=== PATIENT | male | born 1945 | race Caucasian/White ===

== ENCOUNTER 2017-10-09 12:54 | Day surgery (SDC) | payer BC ==
[2017-10-09] MEDS ORDERED: LIDOCAINE 1% 300 MG/30 ML SDV ONE (15:04)
[2017-10-09] MEDS ORDERED: TRIAMCINOLONE ACETONIDE 200 MG/5 ML MDV IM ONE (15:04)
== END 2017-10-09 14:45 | disposition home or self-care (01) ==
LOC: FIMAGING 12:54
PROVIDERS: ATTEND Physical Medicine & Rehabilitation
PROC: 3E0R3BZ Introduction of Anesthetic Agent into Spinal Canal, Percutaneous Approach (ICD-10-PCS; principal; 2017-10-09)
PROC: 3E0R33Z Introduction of Anti-inflammatory into Spinal Canal, Percutaneous Approach (ICD-10-PCS; principal; 2017-10-09)
DX: M51.16 Intervertebral disc disorders with radiculopathy, lumbar region (principal); M54.5 Low back pain
CPT/HCPCS: J3301

== ENCOUNTER 2018-06-07 05:47 | Day surgery (SDC) | payer BC ==
[2018-06-07] MEDS ORDERED: ceFAZolin 2 GM/DEXTROSE 100 ML IV ONE (06:06)
[2018-06-07] MEDS ORDERED: LIDOCAINE 1% 2 ML INJ ID PRN (06:06)
[2018-06-07] MEDS ORDERED: LR 1,000 ML IV ONE (06:06)
--- NOTE | 2018-06-07 06:20 | PDHPUP ---
History & Physical Update H&P update statement: This history and physical update is based on an assessment of the patient which was completed after admission or registration (within 24 hours), but prior to the surgery/procedure. H&P update: H&P reviewed & patient examined, no change in patient's condition since H&P completed
--- NOTE | 2018-06-07 07:01 | PDANEPAE ---
ANE History of Present Illness left inguinal hernia for laparoscopic hernia repair ANE Past Medical History - Cardiovascular History Hx Hypertension: No Hx Arrhythmias: No Hx Chest Pain: No Hx Coronary Artery / Peripheral Vascular Disease: Yes Hx CHF / Valvular Disease: No Hx Palpitations: No Cardiovascular History Comment: no chest pain since stents were placed - Pulmonary History Hx COPD: No Hx Asthma/Reactive Airway Disease: No Hx Recent Upper Respiratory Infection: No Hx Oxygen in Use at Home: No Hx Sleep Apnea: No Sleep Apnea Screening Result - Last Documented: Negative Pulmonary History Comment: Hayfever - Neurologic History Hx Cerebrovascular Accident: No Hx Seizures: No Hx Dementia: No - Endocrine History Hx Diabetes: No Hypothyroid: No Hyperthyroid: No Obesity: no - Renal History Hx Renal Disorders: Yes Renal History Comment: BPH - Liver History Hx Hepatic Disorders: No - Neurological & Psychiatric Hx Hx Neurological and Psychiatric Disorders: No - Cancer History Hx Cancer: No - Congenital Disorder History Hx Congenital Disorders: No - GI History GERD: no Hx Gastrointestinal Disorders: No - Other Health History Other Health History: 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 MACULAR DEGENERATION - Chronic Pain History Chronic Pain: No - Surgical History Prior Surgeries: HEART STENT 2014 & 2016. RT ING HERNIA. vasecetomy. TONSILLECTOMY ANE Review of Systems Review of systems is: negative Review of Systems: - Exercise capacity METS (RN): 4 METS ANE Patient History - Allergies Allergies/Adverse Reactions: STERI STRIPS Allergy (Uncoded 06/06/18 14:29) SKIN REACTION - Home Medications Home medications: home medication list seen and reviewed Home Medications: Aspirin 81mg (*) 81 mg PO DAILY 10/03/17 [Last Taken 06/01/18] Crestor 40mg (*) 40 mg PO HS 10/03/17 [Last Taken 06/06/18] Flomax 0.4 mg PO HS 10/03/17 [Last Taken 06/06/18] Plavix 75 mg PO HS 10/03/17 [Last Taken 06/01/18] Levitra PRN 06/06/18 [Last Taken 06/06/18] Multivitamin (*) DAILY 06/06/18 [Last Taken 06/06/18] - NPO status NPO Since - Liquids (Date): 06/06/18 NPO Since - Liquids (Time): 19:00 NPO Since - Solids (Date): 06/06/18 NPO Since - Solids (Time): 19:00 - Anes Hx Anes Hx: no prior problems - Smoking Hx Smoking Status: Never smoked - Family Anes Hx Family Anes Hx: none Family Hx Anesthesia Complications: denies ANE Labs/Vital Signs - Vital Signs Blood Pressure: 142/88 Heart Rate: 59 Respiratory Rate: 18 O2 Sat (%): 96 Height: 172.72 cm Weight: 59.874 kg ANE Physical Exam - Airway Neck exam: FROM Mallampati Score: Class 1 Mouth exam: normal dental/mouth exam - Pulmonary Pulmonary: no respiratory distress - Cardiovascular Cardiovascular: regular rate and rhythym - ASA Status ASA Status: III ANE Anesthesia Plan Anesthesia Plan: general endotracheal anesthesia
[2018-06-07] MEDS ORDERED: BUPIVACAINE 0.5% 30 ML SDV ONE (07:03)
[2018-06-07] MEDS ORDERED: fentaNYL 100 MCG/2 ML INJ ONE (07:07)
[2018-06-07] MEDS ORDERED: ROCURONIUM 50 MG/5 ML VIAL ONE (07:07)
[2018-06-07] MEDS ORDERED: ONDANSETRON 4 MG/2 ML VIAL ONE (07:07)
[2018-06-07] MEDS ORDERED: SUGAMMADEX SODIUM 200 MG/2 ML VIAL IVP ONE (07:07)
[2018-06-07] MEDS ORDERED: DEXAMETHASONE 4 MG/ML VIAL ONE (07:07)
[2018-06-07] MEDS ORDERED: PROPOFOL 200 MG/20 ML VIAL ONE (07:07)
[2018-06-07] MEDS ORDERED: LIDOCAINE 2% 2 ML INJ ONE (07:09)
[2018-06-07] MEDS ORDERED: ePHEDrine SULFATE 25 MG/5 ML SYR ONE (07:42)
[2018-06-07] MEDS ORDERED: PHENYLEPHRINE HCL 100 MCG/ML SYR ONE (07:42)
[2018-06-07] MEDS ORDERED: HYDROmorphONE/DILAUDID 2 MG/ML INJ IVP PRN (07:46)
[2018-06-07] MEDS ORDERED: LR 500 ML IV PRN (07:46)
[2018-06-07] MEDS ORDERED: ALBUTEROL 3 ML DEYVIAL IH PRN (07:46)
[2018-06-07] MEDS ORDERED: NALOXONE HCL 0.4 MG/ML INJ IVP PRN (07:46)
[2018-06-07] MEDS ORDERED: ACETAMINOPHEN 500 MG TAB PO PRN (07:46)
[2018-06-07] MEDS ORDERED: fentaNYL 100 MCG/2 ML INJ IVP PRN (07:46)
[2018-06-07] MEDS ORDERED: ONDANSETRON 4 MG/2 ML VIAL IVP PRN (07:46)
[2018-06-07] MEDS ORDERED: oxyCODONE IR 5 MG TAB PO PRN (07:46)
[2018-06-07] MEDS ORDERED: PROMETHAZINE HCL 25 MG/ML INJ IVP PRN (07:46)
[2018-06-07] MEDS ORDERED: LABETALOL HCL 5 MG/ML 20 ML MDV IVP PRN (07:46)
[2018-06-07] MEDS ORDERED: HYDROCODONE/APAP 5/325 TAB PO PRN (07:46)
--- NOTE | 2018-06-07 07:46 | POSTANESTH ---
Post Anesthetic Evaluation Cardiovascular Status: Normal, Stable Respiratory Status: Normal, Stable Level of Consciousness/Mental Status: Can Participate in Eval, Mildly Sleepy, Arousable Pain Control: Adequate, Prn Tx Ordered Nausea/Vomiting Control: Adequate, Prn Tx Ordered Complications Possibly Related to Anesthesia: None Noted
[2018-06-07] MEDS ORDERED: KETOROLAC 30 MG/1 ML SDV ONE (07:52)
--- NOTE | 2018-06-07 08:40 | POSTOPPROG ---
Post Op Note Date of Operation: 06/07/18 Surgeon: Madeline Rosario Marble Polisher: ambar Anesthesiologist: russell Anesthesia: GET(General Endotracheal) Pre-op Diagnosis: LIH Post-op Diagnosis: BIH and R femoral Indication: 72 yo with RIH Procedure: Lap BIH Findings: B indirect and R femoral Inf/Abcess present in the surg proc area at time of surgery?: No EBL: Minimal Specimen(s): none
--- NOTE | 2018-06-07 09:17 | GOP ---
DATE OF OPERATION: 06/07/2018 SURGEON: Madeline Rosario MD PERCUSSION WELDING MACHINE OPERATOR: Verna Power P.A.-C. ANESTHESIA: General. ANESTHESIOLOGIST: Kapil Jason MD. PREOPERATIVE DIAGNOSIS: Left inguinal hernia. POSTOPERATIVE DIAGNOSIS: Left initial indirect inguinal hernia, right indirect inguinal hernia and r ight femoral hernia. PROCEDURE PERFORMED: Laparoscopic bilateral inguinal hernia repair with mesh. FINDINGS: Left and right indirect inguinal hernias and a right femoral hernia. SPECIMENS: None. ESTIMATED BLOOD LOSS: 5 cc. INDICATIONS: The patient is a 72-year-old who presented with a left inguinal hernia. DESCRIPTION OF PROCEDURE: Patient was brought into the operating room, placed supine on the table, a nd general anesthesia was administered. His abdomen was prepped and draped in the usual sterile fash ion. I infiltrated all sites with 0.5% Marcaine prior to making incisions. I made an incision in hi s umbilicus. I dissected down through the subcutaneous space and encountered the anterior rectus she ath. I divided this. I also divided the posterior rectus sheath. I then created a plane between th e anterior and posterior rectus sheath and directed the balloon tip trocar directed towards the pubis . I performed hand insufflation with the camera in place. He was placed in the Trendelenburg positi on. I exchanged the dissecting balloon for the working balloon insufflation at 15 mmHg. I placed a 5 mm suprapubic trocar and a 5 mm trocar between the 1st and 2nd trocars. I started on the left side . I cleared the pubis and created a space laterally. The inferior epigastric vessels were kept ante rior to the plane. I freed the peritoneum from the cord and cord structures. I then placed a piece of laparoscopic self-fixating ProGrip mesh to cover the direct, indirect, and femoral spaces. It was tacked to the pubic tubercle and anteriorly. Next, I explored the right side. On the right side he had an indirect inguinal hernia. The peritoneum was very thin and I made a small breach in the cindy toneum which was clipped. He also had a small femoral hernia. The fat was reduced by the femoral ve in. Once both hernias were reduced, I placed a piece of laparoscopic self-fixating ProGrip mesh to c over the direct, indirect, and femoral spaces. It was also tacked to the pubic tubercle and anterior . The preperitoneal space was allowed to desufflate, same with the air in the peritoneum. Fascia cl osed with 0 Vicryl, skin closed with 4-0 Monocryl, Dermabond applied. He was awakened in the operati ng room, extubated, transferred to PACU in stable condition. /[id number]/MODL
[2018-06-07 10:53] VITALS: BP 125/73
== END 2018-06-07 10:23 | disposition home or self-care (01) ==
LOC: FSGY 05:47
PROVIDERS: ATTEND Surgery
PROC: 0YU74JZ Supplement Right Femoral Region with Synthetic Substitute, Percutaneous Endoscopic Approach (ICD-10-PCS; principal; 2018-06-07 07:14)
PROC: 0YUA4JZ Supplement Bilateral Inguinal Region with Synthetic Substitute, Percutaneous Endoscopic Approach (ICD-10-PCS; principal; 2018-06-07 07:14)
DX: K40.00 Bilateral inguinal hernia, with obstruction, without gangrene, not specified as recurrent (principal); K41.90 Unilateral femoral hernia, without obstruction or gangrene, not specified as recurrent; N40.0 Benign prostatic hyperplasia without lower urinary tract symptoms
CPT/HCPCS: C1727; C1781; J0690; J1100; J1885; J2370; J2405; J2704; J3010

== ENCOUNTER → 2018-06-17 | Outpatient (CLI) | payer BC | LOC: FIMAGING 15:58 | PROVIDERS: ATTEND Surgery | DX: R19.09 Other intra-abdominal and pelvic swelling, mass and lump (principal); N50.812 Left testicular pain; R10.32 Left lower quadrant pain ==

== ENCOUNTER 2018-10-18 15:05 | Day surgery (SDC) | payer BC ==
[2018-10-18] MEDS ORDERED: MIDAZOLAM 2 MG/2 ML VIAL ONE (15:07)
[2018-10-18] MEDS ORDERED: LIDOCAINE 1% 300 MG/30 ML SDV ONE (15:07)
[2018-10-18] MEDS ORDERED: fentaNYL 100 MCG/2 ML INJ ONE (15:07)
[2018-10-18] MEDS ORDERED: diphenhydrAMINE 25 MG CAP PO ONE ×2 (15:08→15:12)
[2018-10-18] MEDS ORDERED: DIAZEPAM 5 MG TAB PO ONE (15:08)
[2018-10-18] MEDS ORDERED: FAMOTIDINE 20 MG TAB PO ONE (15:08)
[2018-10-18] MEDS ORDERED: NS 1,000 ML IV ONE (15:08)
[2018-10-18] MEDS ORDERED: ASPIRIN EC 325 MG TAB PO ONE ×2 (15:08→15:12)
[2018-10-18] MEDS ORDERED: VERAPAMIL 5 MG/2 ML VIAL ONE (15:10)
[2018-10-18] MEDS ORDERED: HEPARIN 10,000 UNIT/10 ML MDV (1,000 UNIT/ML) ONE (15:10)
[2018-10-18] MEDS ORDERED: DIAZEPAM 5 MG TAB ONE (15:12)
[2018-10-18] MEDS ORDERED: FAMOTIDINE 20 MG TAB ONE (15:12)
[2018-10-18] MEDS ORDERED: CLOPIDOGREL BISULFATE 75 MG TAB ONE (15:22)
[2018-10-18 15:31] LABS: PLATELET COUNT 169 10^3/uL (150-400)
--- NOTE | 2018-10-18 15:33 | PDPROPOC ---
Sedation Plan of Care Sedation Plan of Care: vital signs stable, mental status noted, patient educated of risks, benefits, alternatives, patient can tolerate sedation ASA Classification: ASA 2 Planned drugs: fentanyl, midazolam Mallampati Score: Class 1 Mallampati Reference Image: Patient passed 3-3-2 rule?: Yes
[2018-10-18 15:41] LABS: INR 1.05 (0.83-1.16); PROTIME(PATIENT) 13.9 SEC (12.0-15.0)
[2018-10-18] MEDS ORDERED: CLOPIDOGREL BISULFATE 75 MG TAB PO ONE (15:45)
[2018-10-18] MEDS ORDERED: IOHEXOL 350mgI/ML (OMNIPAQUE) 150 ML BTL IV ONE (15:48)
--- NOTE | 2018-10-18 16:14 | PDDXCAT ---
Diagnostic Cath Note - . Date: 10/18/18 Translator Interpreter: Lc Indication: CCC Class III and IV angina on medical treatment - Procedure Access: left wrist Procedure: left heart catheterization, coronary angiography, left ventriculogram - Materials Left Heart Cath size: 5F Left Heart Cath materials: standard multipack (JL4, JR4, pigtail), JL3.5 - Findings-Left Heart Catheterization LM: Short unobstructed LAD: Stented to the ostium with widely patent stents LCX: Unobstructed RCA: Heavily stented without restenosis. EDP: 18 mm of mercury LVEF: 64 Wall motion: Normal Complications: None Closure method: TR Band Assessment: Widely patent site of prior stenting. Normal LV systolic function Plan: Continue aggressive secondary prevention. Patient Problems: Problems Problem Status Onset Clostridium difficile colitis Active
== END 2018-10-18 19:11 | disposition home or self-care (01) ==
LOC: EDSTATUS 15:05 → FCATH 15:05
PROVIDERS: ATTEND Internal Medicine Interventional Cardiology
DX: R07.9 Chest pain, unspecified (principal); I25.10 Atherosclerotic heart disease of native coronary artery without angina pectoris; L57.0 Actinic keratosis; G25.0 Essential tremor; J44.9 Chronic obstructive pulmonary disease, unspecified; E78.5 Hyperlipidemia, unspecified; N52.9 Male erectile dysfunction, unspecified; Z82.49 Family history of ischemic heart disease and other diseases of the circulatory system; Z95.5 Presence of coronary angioplasty implant and graft
CPT/HCPCS: 93458; C1769; J1644; J2250; J3010; Q9967

== ENCOUNTER → 2019-02-05 | Outpatient (CLI) | payer BC | LOC: FIMAGING 12:25 ==

== ENCOUNTER 2019-02-19 07:24 | Emergency (ER) | payer BC | END 2019-02-19 11:27 | disposition home or self-care (01) ==